=== PATIENT | male | born 1995 | race African-American/Black ===

== ENCOUNTER → 2017-01-23 | Outpatient (CLI) | payer MEDICAID | END | disposition home or self-care (01) | LOC: RAD 10:39 | DX: M17.12 Unilateral primary osteoarthritis, left knee (principal) | CPT/HCPCS: 73562 ==

== ENCOUNTER → 2018-06-25 | Outpatient (CLI) | payer MEDICAID | END | disposition home or self-care (01) | LOC: US 12:31 | DX: N62 Hypertrophy of breast (principal) | CPT/HCPCS: 76642 ==